=== PATIENT | male | born 1970 | race Caucasian/White ===

== ENCOUNTER 2019-10-07 08:46 | Outpatient (CLI) | payer OTHER, SELFPAY ==
--- NOTE | ~2019-10-07 | US_ITS ---
EXAMINATION: US venous doppler LE EXAM DATE: 10/07/2019 09:57 INDICATION: Bilateral leg edema. TECHNIQUE: Multiple grayscale, color flow and Doppler images of the lower extremity deep venous syste ms bilaterally were obtained and reviewed. Comparison is made to prior examination from 09/07/2018. FINDINGS: Right side: The right common femoral, femoral and profunda veins demonstrate normal color flow, respi ratory variation, augmentation and compressibility. Compressibility, color flow confirmed within the right popliteal, posterior tibial, peroneal, and greater saphenous veins. Left side: The left common femoral, femoral and profunda veins demonstrate normal color flow, respira tory variation, augmentation and compressibility. Compressibility, color flow confirmed within the l eft popliteal, posterior tibial, peroneal, and greater saphenous veins. IMPRESSION: 1. No lower extremity deep venous thrombosis bilaterally. Reviewed, dictated and finalized at location B. ERCIAL REPORTER
== END 2019-10-07 08:47 | disposition home or self-care (01) ==
LOC: CHSIMG 08:47
PROVIDERS: PCP Internal Medicine; Visit Provider Internal Medicine
DX: I82.403 Acute embolism and thrombosis of unspecified deep veins of lower extremity, bilateral (principal)
CPT/HCPCS: 93970

== ENCOUNTER 2022-01-03 20:01 | Emergency (ER) | payer OTHER, SELFPAY ==
[2022-01-03] VITALS (9 sets, daily range): BP systolic 137–158; BP diastolic 70–90; PULSE 62–70; RESP 12–18; TEMP 35.8; O2SAT 89–97
--- NOTE | ~2022-01-03 | XR_ITS ---
EXAMINATION: XR chest 1V portable Exam Date/Time: 01/03/2022 20:20 CDT HISTORY: severe SOB with weakness Comparison: None available. RESULT: Lines, tubes, and devices: Possible coronary artery stent. Lungs and pleura: Clear. Cardiomediastinal silhouette: Stable cardiomediastinal silhouette. Other: No acute osseous or upper abdominal finding. IMPRESSION: No acute cardiopulmonary process. Reviewed, dictated and finalized at location K.
--- NOTE | 2022-01-03 20:14 | ECG_ITS ---
Measurements Intervals [place] Rate: 60 P: 62 NE: 180 QRS: 58 QRSD: 169 T: 31 QT: 503 QTc: 507 Interpretive Statements SINUS RHYTHM RIGHT BUNDLE BRANCH BLOCK BASELINE ARTIFACT- II, III, AVR, AVF, V2-V3 ABNORMAL ECG Electronically Signed On 01-04-2022 6:42:46 CDT by Keaton Marti D.O.
[2022-01-03 20:18] LABS: Glucose Point of Care 95 mg/dl (65-105)
[2022-01-03 20:29] LABS: Basophils Absolute Auto 0.04 K/mm3 (0.00-0.10); Basophils Percent Auto 0.6 % (0.0-1.0); Eosinophils Absolute Auto 0.36 K/mm3 (0.02-0.50); Eosinophils Percent Auto 5.8 % (1.0-6.0); Hemoglobin 9.8 g/dL (14.0-18.0); Immature Granulocyte Absolute 0.05 K/mm3 (0.00-0.00); Immature Granulocyte Percent A 0.8 % (0.0-0.0); Lymphocytes Absolute Auto 1.09 K/mm3 (1.10-4.50); Lymphocytes Percent Auto 17.5 % (18.0-42.0); Mean Corpuscular Hemoglobin 30.5 pg (27.0-31.0); Mean Corpuscular Volume 87.2 fL (78.0-102.0); Mean Platelet Volume 8.4 fl (8.7-11.0); Monocytes Absolute Auto 0.42 K/mm3 (0.10-0.90); Monocytes Percent Auto 6.8 % (2.0-11.0); Neutrophils Absolute Auto 4.3 K/mm3 (1.7-7.2); Neutrophils Percent Auto 68.5 % (50.0-70.0); Platelet Count Result 103 K/mm3 (150-420); Red Blood Count 3.21 M/mm3 (4.70-6.10); Red Cell Distribution Width 13.5 % (11.6-14.4); White Blood Count 6.2 K/mm3 (4.8-10.8)
--- NOTE | 2022-01-03 20:30 | ED.GENADULT ---
HPI - General Adult General Chief complaint: Unspecified Stated complaint: amb Time Seen by Provider: 01/03/22 20:04 Source: patient, EMS and RN notes reviewed Mode of arrival: EMS Limitations: other (pt was drowsy and not talkative. He answered yes and no to questions.) History of Present Illness Onset (ago): hour(s) (2) Radiation: non-radiation Severity: moderate Exacerbating factors: none Associated symptoms: confusion Treatments prior to arrival: other (EMS IV 10% dextrose.) Related Data Home Medications Medication Instructions Recorded Confirmed amlodipine 10 mg PO DAILY 01/03/22 01/03/22 atorvastatin 40 mg PO DAILY 01/03/22 01/03/22 carvedilol 25 mg PO BID 01/03/22 01/03/22 glimepiride 4 mg PO QAM 01/03/22 01/03/22 insulin lispro protamin-lispro 50 unit SUBCUT QACBREAK 01/03/22 01/03/22 [Humalog Mix 75-25 KwikPen] losartan 100 mg PO DAILY 01/03/22 01/03/22 metolazone 5 mg PO DAILY 01/03/22 01/03/22 nitroglycerin 0.4 mg SUBLINGUAL Q10-15M PRN 01/03/22 01/03/22 pantoprazole 40 mg PO DAILY 01/03/22 01/03/22 paroxetine HCl 40 mg PO QAM 01/03/22 01/03/22 pen needle, diabetic [BD 01/03/22 01/03/22 Ultra-Fine Mini Pen Needle] pravastatin 20 mg PO DAILY 01/03/22 01/03/22 pregabalin 25 mg PO BID 01/03/22 01/03/22 rivaroxaban [Xarelto] 2.5 mg PO DAILY 01/03/22 01/03/22 sitagliptin 100 mg PO DAILY 01/03/22 01/03/22 Allergies Allergy/AdvReac Type Severity Reaction Status Date / Time No Known Allergies Allergy Mild Verified 01/03/22 20:20 Review of Systems Review of Systems: All systems reviewed & are unremarkable except as noted in HPI and below PMFSH Past Medical History Medical History Hypoglycemia associated with diabetes Exam Const: General: healthy appearing, comfortable and no acute distress Nutritional Appearance: well nourished and overweight Orientation/consciousness: patient oriented x3 Limitations: no limitations HENMT: Head: normal to inspection, No palpable skull fracture present, normocephalic and atraumatic Ears: hearing grossly normal bilaterally, external ears normal and TM normal on the right General nose exam: Normal external nose present and Normal nares present Face and sinus: normal facial exam and sinuses nontender Mouth: Yes Normal oral and palatal mucosa present, Yes lip normal, Yes tongue normal and Yes moist mucous membranes Throat: posterior oropharynx normal Eyes: General: appearance normal, both eyes and all related structures Eyelids: eyelids normal Conjunctivae: conjunctivae normal Sclera: sclerae normal Cornea: corneas normal Pupils: Equal, round and reactive pupils present and Pupils normal by confrontation EOM: EOMs intact bilaterally Direct Ophthalmoscopy: normal light reflex Neck: Neck: normal visual inspection, full ROM, no lymphadenopathy and no meningeal signs Chest: Chest palpation & inspection: normal inspection of the chest Resp: Effort & Inspection: normal respiratory effort and able to speak in complete sentences Auscultation: clear to auscultation bilaterally Cardio: Jugular venous distension: no JVD Rate: regular rate Rhythm: regular rhythm Peripheral pulses: Peripheral pulses 2+ throughout GI: GI Palp: No abdominal tenderness Auscultation: normal bowel sounds : General: Yes bladder normal to palpation Back/Spine/Pelvis: Back: no CVA tenderness Thoracic/Lumbar Spine: thoraco-lumbar ROM normal Skin: General skin exam: normal color Neuro: General: patient oriented x3 and gait normal Cranial nerves: Yes CN's II-XII intact bilaterally and Yes Bilaterally intact EOM present Cognition (Neuro): normal cognition Speech: normal speech Gait exam (Neuro): Normal gait present Motor exam (neuro): 5/5 motor strength present throughout Sensory Exam: normal sensation Extrem: General: normal to inspection, full ROM, capillary refill normal, normal exam except as noted, no pedal edema and no calf
[2022-01-03] MEDS: DEXTROSE 50% 25 GM/50 ML SYRINGE IV PUSH ×2 (20:43→20:44)
[2022-01-03] MEDS: DEXTROSE 5%/0.9% SOD CHL 1,000 ML 1000 ML IV CONT (20:44)
[2022-01-03 20:49] LABS: Alanine Aminotransferase 24 U/L (16-63); Albumin Level 3.2 g/dL (3.4-5.0); Alkaline Phosphatase 62 U/L (46-116); Anion Gap 8 mmol/L (8-16); Aspartate Amino Transferase 17 U/L (15-37); Bilirubin,Total 0.5 mg/dL (0.00-1.00); Blood Urea Nitrogen 46 mg/dL (7-18); Calcium 8.6 mg/dL (8.5-10.1); Carbon Dioxide 27 mmol/L (21-32); Chloride 102 mmol/L (98-108); Estimated CRCL calculation 44 ml/min; Estimated Glomerular Filt Rate 27; Ethanol < 3 mg/dL (0-6); Glucose 86 mg/dL (70-99); Osmolality Calculated 294 mOsm/kg (285-295); Potassium 3.5 mmol/L (3.5-5.1); Sodium 137 mmol/L (136-145); Total Protein 6.1 g/dL (6.4-8.2); Troponin I 16.5 ng/L (0.00-60.4)
[2022-01-03 21:31] LABS: Glucose Point of Care 334 mg/dl (65-105)
[2022-01-03 22:07] LABS: Add Urine Microscopic? YES; Appearance Urine Clear (Clear); Bilirubin Urine Negative (Negative); Blood Urine 1+ (Negative); Color Urine Light Yellow (Yellow); Glucose Urine UA 1+ (Negative); Ketones Urine Negative (Negative); Leukocyte Esterase Ur Negative (Negative); Nitrate Urine Negative (Negative); Protein Urine 3+ (Negative); Urobilinogen Urine 0.2 mg/dL (0.2-1.0)
[2022-01-03 22:12] LABS: Bacteria Urine None seen /hpf; Squamous Epithelial Cell Urine None seen /hpf (Few); WBC Urine 0-3 /hpf (0-3)
[2022-01-03 22:14] LABS: Amphetamine Screen Urine Negative (Negative); Barbiturate Screen Urine Negative (Negative); Benzodiazepines Screen Urine Negative (Negative); Cannabinoid Screen Urine Negative (Negative); Cocaine Screen Urine Negative (Negative); Methadone Screen Urine Negative (Negative); Opiate Screen Urine Positive (Negative); Phencyclidine Screen Urine Negative (Negative)
[2022-01-03 22:32] LABS: Glucose Point of Care 310 mg/dl (65-105)
== END 2022-01-03 23:48 | disposition home or self-care (01) ==
PROVIDERS: Emergency Provider Emergency Medicine; PCP Internal Medicine
DX: E11.649 Type 2 diabetes mellitus with hypoglycemia without coma (principal)
CPT/HCPCS: 36415; 71045; 80053; 80307; 81001; 82948; 84484; 85025; 93005; 96361; 96374; 99284; J7042

== ENCOUNTER 2022-02-03 16:45 | Outpatient (RCR) | payer OTHER, SELFPAY ==
--- NOTE | 2022-02-04 07:23 | PTOPEVAL ---
Thank you for referring Quan Waggoner to [facility].? The patient is scheduled to be seen for therapy? 2x/week for 10 visits. Please review, sign, date and return this plan of care MOO. I agree with and certify that the following plan of care is medically necessary. Referring Physician Date Admitting Provider: Attending Provider: Rob Sears MD Referring Provider: *PT Outpatient Evaluation Start: 02/03/22 16:15 Freq: Status: Active Protocol: Document 02/03/22 16:22 [facility] (Rec: 02/03/22 18:01 [facility] [id number]) Therapy Assessment Status Assessment Status Assessment Status Evaluation Outpatient Past Medical History Neurological History Hx Neurological Disorders No Significant History Cardiovascular History Hx Coronary Stent Yes Hx Hypertension Yes Gastrointestinal History Hx Gastroesophageal Reflux Disease Yes Genitourinary History Hx Genitourinary Disorders No Significant History Musculoskeletal History Hx Musculoskeletal Disorders No Significant History Hematological History Hx Hematological Disorders No Significant History Endocrine History Hx Diabetes Yes HEENT History Hx HEENT Disorders No Significant History Integumentary History Hx Skin Disorders No Significant History Reproductive History Hx Reproductive Disorders No Significant History Psychosocial History Hx Psychiatric Disorders No Significant History Pain History History of Any Previous or Ongoing No Significant History Instance of Pain Anesthesia History Hx Anesthesia Reactions No Significant History Evaluation Information Problem Diagnosis Neck pain Onset 10/12/2021 Subjective Information Pt reports insidious onset of Query Text:As Reported By Patient/ neck pain with radicular Family symptoms L>R since October. He also has a history of low back pain with 2 past surgeries, however this pain is more tolerable now. He describes his radicular symptoms as numbing and painful and symptoms go down to the left hand and right elbow. Radicular symptoms come on at random without any specific mechanism, and they also cause his hands to feel weaker. He reports occasional headaches that start at the base of his neck and sometimes cause him to feel dizzy. Symptoms
--- NOTE | 2022-04-08 18:07 | PTOPEVAL ---
Thank you for referring Quan Waggoner to [facility].? The patient is scheduled to be seen for therapy? 1-2x/week for 9 visits. Please review, sign, date and return this plan of care MOO. I agree with and certify that the following plan of care is medically necessary. Referring Physician Date Admitting Provider: Attending Provider: Rob Sears MD Referring Provider: *PT Outpatient Evaluation Start: 02/03/22 16:15 Freq: Status: Active Protocol: Document 04/08/22 16:46 [facility] (Rec: 04/08/22 18:07 [facility] [id number]) Therapy Assessment Status Assessment Status Assessment Status Progress Outpatient Past Medical History Neurological History Hx Neurological Disorders No Significant History Cardiovascular History Hx Coronary Stent Yes Hx Hypertension Yes Gastrointestinal History Hx Gastroesophageal Reflux Disease Yes Genitourinary History Hx Genitourinary Disorders No Significant History Musculoskeletal History Hx Musculoskeletal Disorders No Significant History Hematological History Hx Hematological Disorders No Significant History Endocrine History Hx Diabetes Yes HEENT History Hx HEENT Disorders No Significant History Integumentary History Hx Skin Disorders No Significant History Reproductive History Hx Reproductive Disorders No Significant History Psychosocial History Hx Psychiatric Disorders No Significant History Pain History History of Any Previous or Ongoing No Significant History Instance of Pain Anesthesia History Hx Anesthesia Reactions No Significant History Evaluation Information Problem Diagnosis Neck pain Onset 10/12/2021 Subjective Information Pt reports that his pain has Query Text:As Reported By Patient/ not changed too much since his Family evaluation in January. He reports that he has not been performing his exercises though. He just received an MRI this morning for his neck due to lightheadedness in his head and neck that has been occurring for a while. He has also received an Xray of his whole back since his initial evaluation and notes that it shows his back is pretty much shot. Pain Assessment Timing of Pain Assessment Timing of Pain Assessment Pre-Treatment Pain Scale Pain Scale Used Numeric (1 - 10) Self Report Pain Assessment Back Reported Pain Level 2 Neck Repo
--- NOTE | 2022-05-06 09:21 | PTOPEVAL1 ---
Assessment and note entered by JT File, PT Evaluation Information Assessment Status Progress Diagnosis neck pain Onset 10/12/21 Subjective Information patient appologizes for not being able to attend therapy for the past few weeks, but reports he has been working a lot of hours. he reports his neck did feel much better after his last therapy session. however, he reports he cotninues to have pain in the neck and and radicualr symptoms more in the L UE. These treatments will address the objective and functional deficits as defined above. The patient will be advanced safely and appropriately in order for the patient to progress towards his/her prior level of function. Additional exercises will be introduced and as well as a comprehensive home exercise program upon discharge, if needed, ?to ensure carryover of functional gains achieved in the clinic. This treatment plan has been reviewed and agreement upon by the patient.
== END 2022-05-03 17:47 | disposition still patient (30) ==
LOC: CHSPT 16:45
PROVIDERS: PCP Internal Medicine; Visit Provider Internal Medicine
DX: M54.2 Cervicalgia (principal)
CPT/HCPCS: 97012; 97014; 97110; 97140; 97161; G0283

== ENCOUNTER 2022-06-20 17:49 | Outpatient (RCR) | payer OTHER, SELFPAY ==
--- NOTE | 2022-07-18 15:59 | PTOPPROG ---
Assessment and note entered by Zoie Alba DPT Evaluation Information Assessment Status Progress Diagnosis neck pain Onset 10/12/21 Subjective Information Pt reports that he is feeling better today and notes improvements in his burning symptoms especially since he has been coming in more often. He notes 1/10 pain but 4-5/10 burning. He also rarely gets headaches now and they are noticeably less intense. He sees his hand surgeon next week. Assessment PT Clinical Summary Pt presents to PT with significant improvements in quality of life and pain since his last evaluation. He demonstrates decreased intensity of cervical radicular symptoms and no longer has constant severe headaches. His mobility is still limited and his radicular symptoms are still bothersome with functional and recreational activities. He will benefit from additional skilled PT to further facilitate symptom relief, improve the aformentioned impairments, and return to full functional and recreational activities. Plan of Care PT Services Indicated Yes Treatment Frequency and 1x week for 6 more visits Duration These treatments will address the objective and functional deficits as defined above. The patient will be advanced safely and appropriately in order for the patient to progress towards his/her prior level of function. Additional exercises will be introduced and as well as a comprehensive home exercise program upon discharge, if needed, ?to ensure carryover of functional gains achieved in the clinic. This treatment plan has been reviewed and agreement upon by the patient.
--- NOTE | 2022-11-02 17:23 | PCPTNOTE ---
patient has not been back to therapy since 08/09/22. as of this date, he will be dc'd from skilled PT services, and all progress towards goals will be taken from his most recent evaluation/note. BENNIE
== END 2022-08-09 23:59 | disposition home or self-care (01) ==
LOC: CHSPT 17:49
PROVIDERS: PCP Internal Medicine; Visit Provider Internal Medicine
DX: M54.2 Cervicalgia (principal)
CPT/HCPCS: 97012; 97014; 97110; 97140; G0283

== ENCOUNTER 2023-01-30 16:56 | Outpatient (RCR) | payer OTHER, SELFPAY ==
--- NOTE | 2023-02-01 20:44 | PTOPEVAL1 ---
Assessment and note entered by JT File, PT Evaluation Information Assessment Status Evaluation Diagnosis chronic neck and lower back pain Onset 01/23/23 Subjective Information patient reports he was doing well after his last therapy for his neck and back. he reports he has had some other medical issues since he last was in therapy as well. he reports now with the neck and lower back he has a lot of pain and stiffness. he reports he is unable to sleep. he reports standing is the worst pain. he reports he is now having parasthesias in the bilateral arms. he reports the lower back is affecting his legs and ability to walk. patient reports he would like to get back to walking grocery store/shopping distances, and would like to get rid of the sleeping issues. Reported Pain Level Pain Score 7,4: Self Report Assessment PT Clinical Summary mr. hobbs is a 52 yo man who presents to skilled PT services for evaluation and treatment of neck and lower back pain. he presents with UE paresthesias, weakness of the core and bilateral UE's/LE's, decreased rom, and mm tightness. he would benefit from continued skilled PT to address his objective/functional deficits and return to his prior level functional activity performance and quality of life. Plan of Care Interventions Electrical Stimulation,Gait Training,Hot Pack/Cold Pack,Manual Therapy,Mechanical Traction,Neuro Re- education,Patient/Caregiver Educati,Therapeutic Activities,Therapeutic Exercise PT Services Indicated Yes Treatment Frequency and 2x weekly for 10 visits Duration These treatments will address the objective and functional deficits as defined above. The patient will be advanced safely and appropriately in order for the patient to progress towards his/her prior level of function. Additional exercises will be introduced and as well as a comprehensive home exercise program upon discharge, if needed, ?to ensure carryover of functional gains achieved in the clinic. This treatment plan has been reviewed and agreement upon by the patient.
--- NOTE | 2023-02-01 20:44 | OPREHPOC ---
Outpatient Therapy Plan of Care This is a Multidisciplinary Plan of Care that may contain components documented by all disciplines (PT, OT, and ST.) PT Problem 1 PT Problem #1 Knowledge Deficit PT Goal 1 Goal 1. independent and compliant with HEP to improve tolerance for continued skilled PT and exercises Target Visit 5 PT Problem 2 PT Problem #2 Pain PT Goal 1 Goal 1. decrease pain at worst by 50% or better to improve quality of life. 2. patient to sleep through the night 4 days a week or better Target Visit 10 PT Problem 3 PT Problem #3 Impaired Strength PT Goal 1 Goal 1. improve core strength to 3+/5 or better 2. improve bilateral hip strength to 4+/5 or better 3. improve bilateral knee strength to 5/5 Target Visit 10 PT Problem 4 PT Problem #4 Impaired Functional Mobil PT Goal 1 Goal 1. NDI to display less than 20% functional deficits 2. no UE paresthesias 3. oswestry to display less than 30% functional deficits 4. patient to stand for 30 minutes in therapy to complete exercises 5. patient to ambulate 10 minutes in therapy for 1200ft or more Target Visit 10
--- NOTE | 2023-03-23 07:38 | PTOPDC ---
Assessment and note entered by JT File, PT Evaluation Information Assessment Status Discharge Diagnosis chronic neck and lower back pain Onset 01/23/23 Subjective Information patient reports he feels Alright today. he reports he continues to have pain in the back and neck, but has had those for years. he reports he feels much better since beginning therapy again, and reports he feels the traction is a great help. Reported Pain Level Pain Score 2,2: Self Report Assessment PT Clinical Summary mr. hobbs presents to skilled PT services for his 10th skilled therapy visit for neck and back pain . he has made progress during his time in therapy in regards to cervical rom, pain reduction, and quality of life. however, he continues to display mm weakness of the core, weakness of the hips, and paresthesias in the UE at times. he would benefit from a home cervical traction device to aid in nervve decompression, but this is not a feasible option at the time. he will DC skilled PT today with an independent HEP. Plan of Care PT Services Indicated Yes
--- NOTE | 2023-03-23 07:38 | OPREHPOC ---
Outpatient Therapy Plan of Care This is a Multidisciplinary Plan of Care that may contain components documented by all disciplines (PT, OT, and ST.) PT Problem 1 PT Problem #1 Knowledge Deficit PT Goal 1 Goal 1. independent and compliant with HEP to improve tolerance for continued skilled PT and exercises Target Visit 5 Progress Met PT Problem 2 PT Problem #2 Pain PT Goal 1 Goal 1. decrease pain at worst by 50% or better to improve quality of life. 2. patient to sleep through the night 4 days a week or better Target Visit 10 Progress Partially Met Comment met for pain reduction PT Problem 3 PT Problem #3 Impaired Strength PT Goal 1 Goal 1. improve core strength to 3+/5 or better 2. improve bilateral hip strength to 4+/5 or better 3. improve bilateral knee strength to 5/5 Target Visit 10 Progress Partially Met Comment met 3 PT Problem 4 PT Problem #4 Impaired Functional Mobil PT Goal 1 Goal 1. NDI to display less than 20% functional deficits 2. no UE paresthesias 3. oswestry to display less than 30% functional deficits 4. patient to stand for 30 minutes in therapy to complete exercises 5. patient to ambulate 10 minutes in therapy for 1200ft or more Target Visit 10 Progress Not Met
== END 2023-03-21 16:16 | disposition home or self-care (01) ==
LOC: CHSPT 16:56
PROVIDERS: PCP Internal Medicine; Visit Provider Internal Medicine
DX: M54.2 Cervicalgia (principal); M54.50 Low back pain, unspecified
CPT/HCPCS: 97012; 97014; 97110; 97140; 97161; G0283

== ENCOUNTER 2023-09-01 07:32 | Outpatient (CLI) | payer OTHER, MEDICARE, SELFPAY ==
--- NOTE | ~2023-09-01 | US_ITS ---
EXAMINATION: US art doppler w press [facility] DATE: 09/01/2023 08:12 INDICATION: Peripheral arterial disease. TECHNIQUE: Segmental pressures and plethysmographic and Doppler waveforms of the brachial and lower e xtremity arteries were obtained. COMPARISON: None. FINDINGS: Right and left brachial artery pressures of 116 mm Hg and 128 mm Hg, respectively, are concordant (no rmal difference <= 30 mmHg). The right ankle-brachial index (BROOKE) is 0.63 (normal >= 0.9-1.0). The right great toe-brachial index (TBI) is 0.35 (normal >= 0.65). Arterial Doppler waveforms are triphasic in common femoral artery and popliteal artery and monophasic in dorsalis pedis. There is no flow in posterior tibial artery.. The left BROOKE is 1.02. The left TBI is 0.68. Arterial Doppler waveforms are triphasic in common femora l artery and popliteal artery and monophasic in dorsalis pedis. There is normal flow in posterior tib ial artery. IMPRESSION: 1. Moderately decreased right BROOKE, consistent with arterial occlusive disease. 2. Absent flow in the posterior tibial arteries bilaterally. Reviewed, dictated and finalized at location E. EN IMPLEMENT MECHANIC
== END 2023-09-01 07:33 | disposition home or self-care (01) ==
LOC: CHSIMG 07:33
PROVIDERS: PCP Internal Medicine; Visit Provider Internal Medicine
DX: I73.9 Peripheral vascular disease, unspecified (principal)
CPT/HCPCS: 93923

== ENCOUNTER 2023-10-03 16:35 | Outpatient (RCR) | payer OTHER, MEDICARE, SELFPAY ==
--- NOTE | 2023-10-03 17:49 | OPREHPOC ---
Outpatient Therapy Plan of Care This is a Multidisciplinary Plan of Care that may contain components documented by all disciplines (PT, OT, and ST.)
--- NOTE | 2023-10-03 17:49 | PTOPEVAL1 ---
Assessment and note entered by Roxana Garcia DPT Evaluation Information Assessment Status Evaluation Diagnosis neck pain, B shoulder pain Onset 10/03/23 Subjective Information Patient reports he has had a history of neck and B shoulder pain for years with recent reoccurrence. he reports in the past PT has helped with pain and usually gives him a lot of relief. He reports pain starts at base of skull and goes down between shoulder blades. He does get headaches but is unsure if that is due to neck pain. He reports difficulty with watching tv and using his cell phone all increase his pain. He report overall he feels tight with pain between the shoulder blades. 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 Reported Pain Level Pain Score 3,4: Self Report Assessment PT Clinical Summary Mr. Waggoner is a 52 year old male who presents to PT with neck and B shoulder pain. He demonstrates decreased cervical and UE ROM, decreased UE strength and impaired posture impairing his ability to sit for long periods of time, watch tv and use his cell phone. He would benefit from skilled PT to address impairments and return to PLOF. Plan of Care Interventions Electrical Stimulation,Hot Pack/Cold Pack,Manual Therapy,Mechanical Traction,Neuro Re-education, Patient/Caregiver Educati,Therapeutic Activities, Therapeutic Exercise PT Services Indicated Yes Treatment Frequency and 2x weekly for 10 visits Duration These treatments will address the objective and functional deficits as defined above. The patient will be advanced safely and appropriately in order for the patient to progress towards his/her prior level of function. Additional exercises will be introduced and as well as a comprehensive home exercise program upon discharge, if needed, ?to ensure carryover of functional gains achieved in the clinic. This treatment plan has been reviewed and agreement upon by the patient.
--- NOTE | 2023-10-05 07:31 | OPREHPOC ---
Outpatient Therapy Plan of Care This is a Multidisciplinary Plan of Care that may contain components documented by all disciplines (PT, OT, and ST.) PT Problem 1 PT Problem #1 Knowledge Deficit PT Goal 1 Goal patient to demonstrate independence with HEP Target Visit 5 PT Problem 2 PT Problem #2 Pain PT Goal 1 Goal 1. Patient to report highest pain at 4/10 Target Visit 10 PT Problem 3 PT Problem #3 Impaired Range of Motion PT Goal 1 Goal 1. Patient to demonstrates B shoulder flexion AROM to 160 deg to return to reaching for house hold tasks 2. Patient to demonstrate 30 deg of cervical flexion and B rotation to 60 deg to return to watching tv and driving at PLOF Target Visit 10 PT Problem 4 PT Problem #4 Impaired Functional Mobil PT Goal 1 Goal 1. Patient to report ability to sit to watch TV for >1 hour without increase in pain 2. Patient to demonstrate 5/5 B shoulder strength to return to lifting for house hold tasks 3. Patient to score less than 30% on NDI Target Visit 10
--- NOTE | 2023-11-02 17:00 | PCPTNOTE ---
patient called and reports he is unable to make it to PT tonight.
--- NOTE | 2023-11-07 17:37 | OPREHPOC ---
Outpatient Therapy Plan of Care This is a Multidisciplinary Plan of Care that may contain components documented by all disciplines (PT, OT, and ST.) PT Problem 1 PT Problem #1 Knowledge Deficit PT Goal 1 Goal patient to demonstrate independence with HEP Target Visit 5 Progress Met PT Problem 2 PT Problem #2 Pain PT Goal 1 Goal 1. Patient to report highest pain at 4/10 Target Visit 10 Progress Not Met PT Problem 3 PT Problem #3 Impaired Range of Motion PT Goal 1 Goal 1. Patient to demonstrates B shoulder flexion AROM to 160 deg to return to reaching for house hold tasks. not met 2. Patient to demonstrate 30 deg of cervical flexion and B rotation to 60 deg to return to watching tv and driving at PLOF. met Target Visit 15 Progress Partially Met Comment continue PT Problem 4 PT Problem #4 Impaired Functional Mobil PT Goal 1 Goal 1. Patient to report ability to sit to watch TV for >1 hour without increase in pain 2. Patient to demonstrate 4+/5 B shoulder strength to return to lifting for house hold tasks 3. Patient to score less than 30% on NDI. met 4. patient to demonstrate 5/5 bilateral LE strength 5. patient to lift 5lbs overhead to tall shelf with bilateral UE's Target Visit 15
--- NOTE | 2023-11-07 17:37 | PTOPREEVAL ---
Assessment and note entered by JT File, PT Evaluation Information Assessment Status Re-evaluation Diagnosis neck pain, B shoulder pain Onset 10/03/23 Subjective Information patient reports his neck and shoulders have less pain and feel better in general. however, he struggles the most with pain in his lower back, weakness in the LE's, and weakness in the UE's. he reports he has not been able to walk to pass his kidney transplant test due to weakness and fatigue . Reported Pain Level Pain Score 1,1: Self Report Assessment PT Clinical Summary mr. hobbs presents to skilled PT services for his 10th skilled PT visit for his neck and bilateral shoulders. he presents with decreased pain in the neck and shoulders, but continues to display weakness. he is also complicated by lower back pain and LE weakness. he displays poor endurance to standing activities and ambulation. he has met HEP goal, and made partial progress towards rom goal. he would benefit from continued skilled PT with focus on UE and LE strength, core stability, and standing/ambulation endurance. his goals were updated to show new treatment plan and focus of skilled PT moving forward. Plan of Care Interventions Hot Pack/Cold Pack,Manual Therapy,Mechanical Traction,Neuro Re-education,Patient/Caregiver Educati,Therapeutic Activities,Therapeutic Exercise PT Services Indicated Yes Treatment Frequency and continue skilled PT 2x weekly for 5 more visits Duration These treatments will address the objective and functional deficits as defined above. The patient will be advanced safely and appropriately in order for the patient to progress towards his/her prior level of function. Additional exercises will be introduced and as well as a comprehensive home exercise program upon discharge, if needed, ?to ensure carryover of functional gains achieved in the clinic. This treatment plan has been reviewed and agreement upon by the patient.
== END 2023-11-17 20:00 | disposition home or self-care (01) ==
LOC: CHSPT 16:35
PROVIDERS: PCP Internal Medicine; Visit Provider Internal Medicine
DX: M54.2 Cervicalgia (principal); M54.6 Pain in thoracic spine
CPT/HCPCS: 97012; 97014; 97110; 97140; 97161; G0283